=== PATIENT | male | born 1975 | race Two or more races ===

== ENCOUNTER 2024-05-04 04:52 | Day surgery (SDC) | payer OTHER ==
[2024-04-30 13:49] VITALS: BMI 28.0
[2024-05-04 11:00] VITALS: TEMP 97.5
[2024-05-04 11:41] VITALS: BP 120/68; PULSE 45; RESP 17
== END 2024-05-04 12:00 | disposition home or self-care (01) ==
LOC: JASU-ENDO 04:52
PROVIDERS: ATTEND Internal Medicine Gastroenterology
PROC: 0DBN8ZX Excision of Sigmoid Colon, Via Natural or Artificial Opening Endoscopic, Diagnostic (ICD-10-PCS; 2024-05-04)
PROC: 3E0H8KZ Introduction of Other Diagnostic Substance into Lower GI, Via Natural or Artificial Opening Endoscopic (ICD-10-PCS; 2024-05-04)
PROC: 0DBL8ZX Excision of Transverse Colon, Via Natural or Artificial Opening Endoscopic, Diagnostic (ICD-10-PCS; 2024-05-04)
PROC: 0DBP8ZX Excision of Rectum, Via Natural or Artificial Opening Endoscopic, Diagnostic (ICD-10-PCS; principal; 2024-05-04 10:00)
DX: Z12.11 Encounter for screening for malignant neoplasm of colon (principal); D12.3 Benign neoplasm of transverse colon; D12.5 Benign neoplasm of sigmoid colon; D12.8 Benign neoplasm of rectum; K64.8 Other hemorrhoids
CPT/HCPCS: 88305-TC

== ENCOUNTER 2024-09-08 04:12 | Day surgery (SDC) | payer OTHER ==
[2024-08-20 13:43] VITALS: BMI 28.0
[2024-09-08 10:56] VITALS: TEMP 98.1
[2024-09-08 11:22] VITALS: BP 120/61; PULSE 56; RESP 17
== END 2024-09-08 11:32 | disposition home or self-care (01) ==
LOC: JASU-ENDO 04:12
PROVIDERS: ATTEND Internal Medicine Gastroenterology
PROC: 0DBN8ZX Excision of Sigmoid Colon, Via Natural or Artificial Opening Endoscopic, Diagnostic (ICD-10-PCS; principal; 2024-09-08 10:45)
DX: Z12.11 Encounter for screening for malignant neoplasm of colon (principal); D12.5 Benign neoplasm of sigmoid colon; K64.8 Other hemorrhoids
CPT/HCPCS: 88305-TC